=== PATIENT | female | born 1975 | race Caucasian/White ===

== ENCOUNTER 2017-11-04 19:10 | Emergency (ER) | payer SELFPAY ==
[~2017-11-04] VITALS: Ht 157.5 cm; Wt 125.0 kg
[2017-11-04 20:03] LABS: MICROSCOPIC AUTO
[2017-11-04 20:10] LABS: CULTURE INDICATED? YES
[2017-11-04 20:15] LABS: BASOPHILS # (AUTO) 0.03 x10^3/uL (0-0.1); BASOPHILS % (AUTO) 0 % (0-1); EOSINOPHILS # (AUTO) 0.26 x10^3/uL (0-0.4); EOSINOPHILS % (AUTO) 4 % (1-7); LYMPHOCYTES # (AUTO) 1.27 x10^3/uL (1-3.4); LYMPHOCYTES % (AUTO) 20 % (22-44); MD NO; MEAN CORPUSCULAR HEMOGLOBIN 26.9 pg (27.0-34.8); MEAN CORPUSCULAR HGB CONC 32.7 g/dL (32.4-35.8); MEAN CORPUSCULAR VOLUME 82.3 fL (80-100); MEAN PLATELET VOLUME 10.6 fL (7.4-10.4); MONOCYTES # (AUTO) 0.37 x10^3/uL (0.2-0.8); MONOCYTES % (AUTO) 6 % (2-9); NEUTROPHILS # (AUTO) 4.58 x10^3/uL (1.8-6.8); NEUTROPHILS % (AUTO) 70 % (42-75); PLATELET COUNT 110 x10^3/uL (130-400); RED BLOOD COUNT 4.92 x10^6/uL (3.82-5.3); RED CELL DISTRIBUTION WIDTH 14.4 % (9.6-15.2)
[2017-11-04 20:23] LABS: ALANINE AMINOTRANSFERASE 24 U/L (12-78); ALBUMIN 3.2 g/dL (3.4-5.0); ANION GAP 6 mmol/L (5-15); CALCIUM 8.1 mg/dL (8.5-10.1); CHLORIDE 110 mmol/L (98-107); CREATININE 0.91 mg/dL (0.55-1.02)
[2017-11-04 20:25] LABS: ALKALINE PHOSPHATASE 52 U/L (45-117); BILIRUBIN,TOTAL 0.4 mg/dL (0.2-1.0); TOTAL PROTEIN 6.8 g/dL (6.4-8.2)
[2017-11-04] MEDS ORDERED: HYDROcodone/APAP 5/325 TABLET ONE (22:18)
[2017-11-04] MEDS ORDERED: ONDANSETRON ODT 4 MG ONE (22:18)
[2017-11-04] MEDS ORDERED: KETOROLAC 30 MG/1 ML ONE (22:18)
[2017-11-04] MEDS ORDERED: KETOROLAC 30 MG/1 ML IM ONE (22:30)
[2017-11-04] MEDS ORDERED: HYDROcodone/APAP 5/325 TABLET PO ONE (22:30)
[2017-11-04] MEDS ORDERED: ONDANSETRON ODT 4 MG PO ONE (22:30)
[2017-11-04 23:08] VITALS: BP 110/54
== END 2017-11-04 23:11 | disposition home or self-care (01) ==
LOC: ED 23:05
DX: K80.20 Calculus of gallbladder without cholecystitis without obstruction (principal); K80.70 Calculus of gallbladder and bile duct without cholecystitis without obstruction
CPT/HCPCS: 36415; 76700; 80053; 81001; 84703; 85025; 87086; 96372; 99285; J1885; Q0162

== ENCOUNTER 2018-07-01 11:19 | Emergency (ER) | payer SELFPAY ==
[~2018-07-01] VITALS: Ht 157.5 cm; Wt 124.6 kg
--- NOTE | 2018-07-01 12:12 | NUR ---
PT AMBULATES TO ROOM FROM LOBBY. NAD. PT PLACED IN GOWN, BP CUFF, PULSE OX IN PLACE.
[2018-07-01 12:26] LABS: MICROSCOPIC NOT IND
[2018-07-01 12:33] LABS: CULTURE INDICATED? NO
[2018-07-01] MEDS ORDERED: ONDANSETRON ODT 4 MG ONE (12:41)
[2018-07-01] MEDS ORDERED: MORPHINE SULFATE 4 MG/ML, 1ML ONE (12:41)
--- NOTE | 2018-07-01 12:45 | NUR ---
PT GIVEN ZOFRAN ODT, MORPHINE IM PER PT REQUEST. PT DOES NOT WANT IV. ERP NOTIFIED. PT RATES ABD PAIN AT 9/10, SLIGHT NAUSEA. CALL LIGHT WITHIN REACH, AWAITING US.
[2018-07-01 12:53] LABS: BASOPHILS # (AUTO) 0.06 x10^3/uL (0-0.1); BASOPHILS % (AUTO) 1 % (0-1); EOSINOPHILS # (AUTO) 0.44 x10^3/uL (0-0.4); EOSINOPHILS % (AUTO) 5 % (1-7); LYMPHOCYTES # (AUTO) 2.41 x10^3/uL (1-3.4); LYMPHOCYTES % (AUTO) 28 % (22-44); MD NO; MEAN CORPUSCULAR HEMOGLOBIN 26.1 pg (27.0-34.8); MEAN CORPUSCULAR VOLUME 81.5 fL (80-100); MEAN PLATELET VOLUME 10.2 fL (7.4-10.4); MONOCYTES # (AUTO) 0.44 x10^3/uL (0.2-0.8); MONOCYTES % (AUTO) 5 % (2-9); NEUTROPHILS # (AUTO) 5.36 x10^3/uL (1.8-6.8); NEUTROPHILS % (AUTO) 62 % (42-75); PLATELET COUNT 205 x10^3/uL (130-400); RED BLOOD COUNT 5.11 x10^6/uL (3.82-5.3); RED CELL DISTRIBUTION WIDTH 15.6 % (9.6-15.2)
[2018-07-01] MEDS ORDERED: MORPHINE SULFATE 4 MG/ML, 1ML IVPush PRN (13:00)
[2018-07-01] MEDS ORDERED: ONDANSETRON 2MG/ML, 2ML IVPush ONE (13:00)
[2018-07-01 13:07] LABS: CHLORIDE 108 mmol/L (98-107)
[2018-07-01 13:12] LABS: ALANINE AMINOTRANSFERASE 19 U/L (12-78); ALBUMIN 3.7 g/dL (3.4-5.0); ALKALINE PHOSPHATASE 61 U/L (45-117); ANION GAP 7 mmol/L (5-15); BILIRUBIN,TOTAL 0.5 mg/dL (0.2-1.0); CALCIUM 8.5 mg/dL (8.5-10.1); CREATININE 0.92 mg/dL (0.55-1.02); TOTAL PROTEIN 7.8 g/dL (6.4-8.2)
--- NOTE | 2018-07-01 13:26 | NUR ---
US AT BS.
--- NOTE | 2018-07-01 13:59 | NUR ---
AWAITING US READ.
--- NOTE | 2018-07-01 14:10 | NUR ---
PT UP/AMBULATED TO BR BY SELF. PT STATES NO EFFECT FROM MORPHINE, STATES PAIN IS STILL 8-9/10.
--- NOTE | 2018-07-01 14:20 | NUR ---
US RESULTS BACK, PT FOR RECHECK.
[2018-07-01 15:09] VITALS: BP 122/64
== END 2018-07-01 15:11 | disposition home or self-care (01) ==
LOC: ED 14:25
DX: K80.20 Calculus of gallbladder without cholecystitis without obstruction (principal); R10.11 Right upper quadrant pain; R10.13 Epigastric pain; J45.909 Unspecified asthma, uncomplicated
CPT/HCPCS: 36415; 76700; 80053; 81003; 83690; 84703; 85025; 96374; 96375; 99284; J2405

== ENCOUNTER 2019-06-03 13:10 | Day surgery (SDC) | payer MEDICAID ==
[~2019-06-03] VITALS: Ht 157.5 cm; Wt 132.0 kg
[~2019-06-03 13:10] MED LIST: ALBU18HF INH; BUDE10.2 INH; omeprazole PO
[2019-06-03] MEDS ORDERED: LACTATED RINGERS 1,000 ML IV SCH (13:37)
[2019-06-03 13:59] VITALS: BP 147/92
[2019-06-03] MEDS ORDERED: ACETAMINOPHEN 500 MG TABLET PO ONE (14:30)
[2019-06-03] MEDS ORDERED: GABAPENTIN 300 MG CAPSULE PO ONE (14:30)
[2019-06-03] MEDS ORDERED: EPINEPHRINE 1 MG/ML, 1ML ONE (14:49)
[2019-06-03] MEDS ORDERED: BUPIVACAINE/PF 0.5% ONE (14:49)
[2019-06-03] MEDS ORDERED: SUCCINYLCHOLINE 20 MG/ML, 10ML ONE (14:55)
[2019-06-03] MEDS ORDERED: PROPOFOL 10 MG/ML, 20ML ONE (14:55)
[2019-06-03] MEDS ORDERED: MIDAZOLAM 1 MG/ML, 2ML ONE (14:55)
[2019-06-03] MEDS ORDERED: ONDANSETRON 2MG/ML, 2ML ONE (14:55)
[2019-06-03] MEDS ORDERED: DEXAMETHASONE 4 MG/ML, 1ML ONE (14:55)
[2019-06-03] MEDS ORDERED: CEFAZOLIN 1,000 MG ONE (14:55)
[2019-06-03] MEDS ORDERED: GLYCOPYRROLATE 0.2MG/1ML, 5ML ONE (14:55)
[2019-06-03] MEDS ORDERED: FENTANYL PF 100 MCG/2ML ONE ×3 (14:55→16:26)
[2019-06-03] MEDS ORDERED: NEOSTIGMINE 1 MG/ML, 10ML ONE (14:55)
[2019-06-03] MEDS ORDERED: ROCURONIUM 10MG/ML,5ML ONE (14:55)
[2019-06-03] MEDS ORDERED: ONDANSETRON 2MG/ML, 2ML IV PRN (15:00)
[2019-06-03] MEDS ORDERED: LABETALOL 5MG/ML, 20ML IV PRN (15:00)
[2019-06-03] MEDS ORDERED: EPHEDRINE 50 MG/ML, 1ML IVPush PRN (15:00)
[2019-06-03] MEDS ORDERED: HYDROmorphone 2 MG/ML, 1ML IVPush PRN (15:00)
[2019-06-03] MEDS ORDERED: hydrALAzine 20 MG/ML, 1ML IV PRN (15:00)
[2019-06-03] MEDS ORDERED: PROMETHAZINE 25 MG/ML, 1ML IV PRN (15:00)
[2019-06-03] MEDS ORDERED: MEPERIDINE/PF 25MG/ML,1ML IVPush PRN (15:00)
[2019-06-03] MEDS ORDERED: CEFOTETAN 2 GM ONE (15:25)
[2019-06-03] MEDS ORDERED: KETOROLAC 30 MG/1 ML ONE (15:42)
[2019-06-03] MEDS: OXYcodone 5 MG/5 ML ORAL.SOL UDC PO PRN ×2 (16:25→16:47)
[2019-06-03] MEDS: FENTANYL PF 100 MCG/2ML IV PRN ×3 (16:25→16:47)
[2019-06-03] MEDS ORDERED: OXYcodone 5 MG/5 ML ORAL.SOL UDC ONE ×2 (16:26→16:48)
[2019-06-03] MEDS ORDERED: HYDROmorphone 1 MG/ML, 1ML INJ ONE (17:17)
== END 2019-06-03 19:05 | disposition home or self-care (01) ==
LOC: OUT 13:10
PROVIDERS: ATTEND Surgery
DX: K80.10 Calculus of gallbladder with chronic cholecystitis without obstruction (principal); E66.01 Morbid (severe) obesity due to excess calories; K21.9 Gastro-esophageal reflux disease without esophagitis; J45.909 Unspecified asthma, uncomplicated; K44.9 Diaphragmatic hernia without obstruction or gangrene; Z68.43 Body mass index [BMI] 50.0-59.9, adult; Z79.899 Other long term (current) drug therapy; Z83.3 Family history of diabetes mellitus; Z80.49 Family history of malignant neoplasm of other genital organs
CPT/HCPCS: 47562; 81025; 88304; J0171; J0330; J0690; J1100; J1170; J1885; J2250; J2405; J2704; J2710; J3010; J3490; J7120

== ENCOUNTER 2019-08-13 07:33 | Outpatient (CLI) | payer MEDICAID | END 2019-08-13 23:59 | disposition home or self-care (01) | LOC: STAR 07:33 | PROVIDERS: ATTEND Internal Medicine Gastroenterology | DX: Z02.9 Encounter for administrative examinations, unspecified (principal) ==

== ENCOUNTER 2019-08-22 11:13 | Day surgery (SDC) | payer MEDICAID ==
[~2019-08-22] VITALS: Ht 157.5 cm; Wt 122.3 kg
[2019-08-22 11:50] VITALS: BP 144/89
[2019-08-22 12:28] LABS: HCG UR SG 1.029 (1.003-1.030)
[2019-08-22] MEDS ORDERED: PROPOFOL 10 MG/ML, 20ML ONE ×3 (12:58)
[2019-08-22] MEDS ORDERED: EPHEDRINE 50 MG/ML, 1ML IM PRN (13:30)
[2019-08-22] MEDS ORDERED: DIPHENHYDRAMINE 50 MG/ML, 1ML IVPush PRN (13:30)
[2019-08-22] MEDS ORDERED: ACETAMINOPHEN 325 MG TABLET PO PRN (13:30)
[2019-08-22] MEDS ORDERED: ONDANSETRON ODT 8 MG PO PRN (13:30)
[2019-08-22] MEDS ORDERED: FENTANYL PF 100 MCG/2ML IV PRN (13:30)
[2019-08-22] MEDS ORDERED: MIDAZOLAM 1 MG/ML, 2ML IV PRN (13:30)
[2019-08-22] MEDS ORDERED: ONDANSETRON 2MG/ML, 2ML IV PRN (13:30)
[2019-08-22] MEDS ORDERED: OXYcodone 5 MG/5 ML ORAL.SOL UDC PO PRN (13:30)
[2019-08-22] MEDS ORDERED: PROMETHAZINE 25 MG/ML, 1ML IV PRN (13:30)
== END 2019-08-22 14:10 | disposition home or self-care (01) ==
LOC: OUT 11:13
PROVIDERS: ATTEND Internal Medicine Gastroenterology
DX: R13.10 Dysphagia, unspecified (principal); K44.9 Diaphragmatic hernia without obstruction or gangrene; K29.50 Unspecified chronic gastritis without bleeding; K21.9 Gastro-esophageal reflux disease without esophagitis; J45.909 Unspecified asthma, uncomplicated; G47.30 Sleep apnea, unspecified; E66.01 Morbid (severe) obesity due to excess calories; Z98.51 Tubal ligation status; Z90.49 Acquired absence of other specified parts of digestive tract; Z99.81 Dependence on supplemental oxygen
CPT/HCPCS: 43239; 43248; 81025; 88305; J2704

== ENCOUNTER 2020-02-10 16:07 | Emergency (ER) | payer MEDICAID ==
[~2020-02-10] VITALS: Ht 157.5 cm; Wt 98.8 kg
--- NOTE | 2020-02-10 16:29 | NUR ---
FIRST CONTACT WITH PT. PT WAS 2 WEEKS LATE ON PERIOD. HAD MINOR VAG BLEEDING LAST NIGHT. HAD CRAMPS IN HER LOW BACK AND A LARGE CLOT CAME OUT OF HER VAGINA THIS MORNING. PT'S AOX4. RESPS EVEN AND UNLABORED. A1. LMP 12/31/19. BP/SPO2 MONITORS IN PLACE. CALL LIGHT WITHIN REACH.
[2020-02-10 16:57] LABS: BASOPHILS # (AUTO) 0.05 x10^3/uL (0-0.1); BASOPHILS % (AUTO) 1 % (0-1); EOSINOPHILS % (AUTO) 2 % (1-7); LYMPHOCYTES # (AUTO) 1.98 x10^3/uL (1-3.4); LYMPHOCYTES % (AUTO) 20 % (22-44); MD NO; MEAN CORPUSCULAR HEMOGLOBIN 28.3 pg (27.0-34.8); MEAN CORPUSCULAR HGB CONC 32.6 g/dL (32.4-35.8); MEAN CORPUSCULAR VOLUME 86.7 fL (80-100); MEAN PLATELET VOLUME 10.5 fL (7.4-10.4); MONOCYTES # (AUTO) 0.56 x10^3/uL (0.2-0.8); MONOCYTES % (AUTO) 6 % (2-9); NEUTROPHILS # (AUTO) 7.04 x10^3/uL (1.8-6.8); NEUTROPHILS % (AUTO) 72 % (42-75); PLATELET COUNT 181 x10^3/uL (130-400); RED BLOOD COUNT 4.92 x10^6/uL (3.82-5.3); RED CELL DISTRIBUTION WIDTH 16.2 % (9.6-15.2)
[2020-02-10] MEDS ORDERED: ONDANSETRON 2MG/ML, 2ML ONE (16:58)
[2020-02-10] MEDS ORDERED: MORPHINE SULFATE 4 MG/ML, 1ML ONE (16:58)
[2020-02-10] MEDS ORDERED: MORPHINE SULFATE 4 MG/ML, 1ML IVPush PRN (17:00)
[2020-02-10] MEDS ORDERED: ONDANSETRON 2MG/ML, 2ML IVPush ONE (17:00)
[2020-02-10 17:08] LABS: ALBUMIN 3.5 g/dL (3.4-5.0); ANION GAP 9 mmol/L (5-15); CALCIUM 8.8 mg/dL (8.5-10.1); CHLORIDE 109 mmol/L (98-107)
[2020-02-10 17:13] LABS: CREATININE 1.01 mg/dL (0.55-1.02)
--- NOTE | 2020-02-10 17:15 | NUR ---
PT PROVIDED URINE SAMPLE AT [facility]. URINE COLLECTED AND UA SENT.
--- NOTE | 2020-02-10 17:15 | NUR ---
PIV EST ON R HAND WITH NO COMPLICATIONS. PT MEDICATED PER EMAR. PT TOLERATED WELL.
[2020-02-10 18:03] LABS: MICROSCOPIC INDICATED
--- NOTE | 2020-02-10 18:21 | NUR ---
PT IN US AT THIS TIME.
--- NOTE | 2020-02-10 18:42 | NUR ---
PT BACK TO ROOM FROM US. PT'S AOX4. RESPS EVEN AND UNLABORED. BP/SPO2 MONITORS IN PLACE. CALL LIGHT WITHIN REACH.
--- NOTE | 2020-02-10 18:49 | NUR ---
REPORT GIVEN TO JOSE MENESES.
--- NOTE | 2020-02-10 18:49 | NUR ---
Report received from ZAIRA Robledo. THis RN to assume care.
[2020-02-10 19:38] VITALS: BP 132/58
--- NOTE | 2020-02-10 19:39 | NUR ---
Discharge instructions given. All questions and concerns addressed. Patient ambulatory with a steady gait. Belongings with patient.
== END 2020-02-10 19:40 | disposition home or self-care (01) ==
LOC: ED 16:58
DX: N93.8 Other specified abnormal uterine and vaginal bleeding (principal)
CPT/HCPCS: 36415; 76830; 80048; 81001; 82040; 84703; 85025; 87086; 96374; 96375; 99284; J2270; J2405

== ENCOUNTER 2020-02-28 12:10 | Emergency (ER) | payer MEDICAID ==
[~2020-02-28] VITALS: Ht 157.5 cm; Wt 100.2 kg
--- NOTE | 2020-02-28 13:20 | NUR ---
LOWER BACK ACROSS LOWER MID BACK. STARTED SUDDENLY LAST NIGHT. CAME ON GRADUALLY AND GOT WORSE. PAIN IN LOWER ABD THE DAY BEFORE. WRAPS AROUND INTO STOMACH NOW. NO HISTORY OF BACK PAIN. HAVE HAD KIDNEY INFECTIONS IN THE PAST.
[2020-02-28 14:20] LABS: BASOPHILS # (AUTO) 0.07 x10^3/uL (0-0.1); BASOPHILS % (AUTO) 1 % (0-1); EOSINOPHILS # (AUTO) 0.29 x10^3/uL (0-0.4); EOSINOPHILS % (AUTO) 3 % (1-7); LYMPHOCYTES # (AUTO) 2.05 x10^3/uL (1-3.4); LYMPHOCYTES % (AUTO) 23 % (22-44); MD NO; MEAN CORPUSCULAR HEMOGLOBIN 28.3 pg (27.0-34.8); MEAN CORPUSCULAR HGB CONC 32.2 g/dL (32.4-35.8); MEAN CORPUSCULAR VOLUME 87.9 fL (80-100); MEAN PLATELET VOLUME 10.6 fL (7.4-10.4); MONOCYTES # (AUTO) 0.45 x10^3/uL (0.2-0.8); MONOCYTES % (AUTO) 5 % (2-9); NEUTROPHILS # (AUTO) 6.15 x10^3/uL (1.8-6.8); NEUTROPHILS % (AUTO) 68 % (42-75); PLATELET COUNT 186 x10^3/uL (130-400); RED BLOOD COUNT 4.79 x10^6/uL (3.82-5.3); RED CELL DISTRIBUTION WIDTH 16.3 % (9.6-15.2)
[2020-02-28 14:23] LABS: ALANINE AMINOTRANSFERASE 22 U/L (12-78); ALBUMIN 3.6 g/dL (3.4-5.0); ANION GAP 8 mmol/L (5-15); CALCIUM 8.9 mg/dL (8.5-10.1); CHLORIDE 108 mmol/L (98-107); CREATININE 0.95 mg/dL (0.55-1.02)
[2020-02-28 14:26] LABS: ALKALINE PHOSPHATASE 55 U/L (45-117); BILIRUBIN,TOTAL 0.4 mg/dL (0.2-1.0); TOTAL PROTEIN 7.2 g/dL (6.4-8.2)
--- NOTE | 2020-02-28 14:28 | NUR ---
Flovivien RN note: Pt provided socks per request. Pt resting in bed, NADN, denies other needs. Pt able to position self for comfort in bed. Continuous oxygen and BP Monitors applied, all safety measures observed.
[2020-02-28 14:39] LABS: MICROSCOPIC NOT IND
[2020-02-28] MEDS ORDERED: ACETAMINOPHEN 500 MG TABLET PO ONE (15:00)
[2020-02-28] MEDS ORDERED: ACETAMINOPHEN 500 MG TABLET ONE (15:35)
--- NOTE | 2020-02-28 15:39 | NUR ---
PT MEDICATED FOR 7-8/10 PAIN ORDERED. NO ACUTE DISTRESS NOTED. PT AWARE OF WAITING FOR TEST RESULSTS. NO OTHER NEEDS EXPRESSED AT THIS TIME.
[2020-02-28 15:40] VITALS: BP 153/76
[2020-02-28] MEDS ORDERED: CYCL-259 PO (16:08)
--- NOTE | 2020-02-28 17:03 | NUR ---
PT IN NO ACUTE DISTRESS. TALKING ON PHONE. IV DC'D WITH CANNULA INTACT. REVIEWED DC INSTRUCTIONS WITH PT. UNDERSTANDING VERBALIZED. PT LEFT AMB, GAIT STEADY.
== END 2020-02-28 17:05 | disposition home or self-care (01) ==
LOC: ED 15:12
DX: R10.30 Lower abdominal pain, unspecified (principal); M54.5 Low back pain; R51 Headache; Z90.49 Acquired absence of other specified parts of digestive tract; Z98.51 Tubal ligation status
CPT/HCPCS: 36415; 80053; 81003; 81025; 85025; 99283

== ENCOUNTER 2020-09-15 18:09 | Emergency (ER) | payer MEDICAID ==
[~2020-09-15] VITALS: Ht 157.5 cm; Wt 105.0 kg
[~2020-09-15 18:09] MED LIST changes: +CYCL10TA2 PO
[2020-09-15] MEDS ORDERED: KETOROLAC 30 MG/1 ML IVPush ONE (18:30)
[2020-09-15] MEDS ORDERED: ONDANSETRON 2MG/ML, 2ML IVPush ONE (18:30)
[2020-09-15] MEDS ORDERED: SODIUM CHLORIDE 0.9% 1,000ML IVBOLUS ONE (18:30)
[2020-09-15] MEDS ORDERED: DIPHENHYDRAMINE 50 MG/ML, 1ML IVPush ONE (18:30)
[2020-09-15] MEDS ORDERED: SODIUM CHLORIDE FLUSH 10ML SYR IVF ONE (18:30)
[2020-09-15] MEDS ORDERED: ONDANSETRON 2MG/ML, 2ML ONE (18:41)
[2020-09-15] MEDS ORDERED: DIPHENHYDRAMINE 50 MG/ML, 1ML ONE (18:41)
[2020-09-15] MEDS ORDERED: KETOROLAC 30 MG/1 ML ONE ×2 (18:41→19:29)
--- NOTE | 2020-09-15 19:03 | NUR ---
x2 PIV sticks without success.
[2020-09-15] MEDS ORDERED: DIPHENHYDRAMINE 25 MG CAPSULE ONE (19:29)
[2020-09-15] MEDS ORDERED: ONDANSETRON ODT 4 MG ONE (19:29)
[2020-09-15] MEDS ORDERED: KETOROLAC 30 MG/1 ML IM ONE (19:30)
[2020-09-15] MEDS ORDERED: ONDANSETRON ODT 4 MG PO ONE (19:30)
[2020-09-15] MEDS ORDERED: DIPHENHYDRAMINE 25 MG CAPSULE PO ONE (19:30)
[2020-09-15 19:37] VITALS: BP 124/65
== END 2020-09-15 20:42 | disposition home or self-care (01) ==
LOC: ED 18:41
DX: G43.009 Migraine without aura, not intractable, without status migrainosus (principal); R11.2 Nausea with vomiting, unspecified; J45.909 Unspecified asthma, uncomplicated; Z98.51 Tubal ligation status
CPT/HCPCS: 96372; 99283; J1885; Q0162; Q0163